=== PATIENT | female | born 1960 | race Caucasian/White ===

== ENCOUNTER 2018-03-27 11:46 | Inpatient (IN) | payer BC ==
[~2018-03-27 11:46] MED LIST: CEFAZOLIN 1 GM INJ; CEFAZOLIN 2 GM/50 ML (PMX) 50 ML IVPB
[2018-03-27 12:31] LABS: ADD MAN DIFF? NO
[2018-03-27 12:39] LABS: WHITE BLOOD COUNT 8.2 10^3/ul (4.8-10.8)
[2018-03-27 12:39] LABS: BASOPHIL # 0.1 10^3/ul (0.0-0.1); BASOPHILS % 0.8 % (0.0-2.0); EOSINOPHILS # 0.1 10^3/ul (0.0-0.5); EOSINOPHILS % 1.7 % (0.0-7.0); HEMATOCRIT 41.8 % (37.0-47.0); HEMOGLOBIN 13.5 g/dl (12.0-16.0); LYMPHOCYTES # 2.3 10^3/ul (0.8-2.9); LYMPHOCYTES % 27.7 % (15.0-51.0); MEAN CORPUSCULAR HEMOGLOBIN 31.4 pg (29.0-33.0); MEAN CORPUSCULAR HGB CONC 32.3 g/dl (32.0-37.0); MEAN CORPUSCULAR VOLUME 97.2 fl (82.0-101.0); MEAN PLATELET VOLUME 9.4 fl (7.4-10.4); MONOCYTE # 0.6 10^3/ul (0.3-0.9); MONOCYTES % 7.5 % (0.0-11.0); NEUTROPHIL # 5.1 10^3/ul (1.6-7.5); NEUTROPHILS % 62.2 % (39.0-77.0); PLATELET COUNT 315 10^3/UL (140-415); RED CELL DISTRIBUTION WIDTH 12.5 % (11.5-14.5)
[2018-03-27 12:53] LABS: ALANINE AMINOTRANSFERASE 37 IU/L (13-69); ALBUMIN 4.4 g/dl (3.3-4.9); ALBUMIN/GLOBULIN RATIO 1.25; ALKALINE PHOSPHATASE 71 IU/L (42-121); ANION GAP 11 (8-16); ASPARTATE AMINO TRANSFERASE 27 IU/L (15-46); BILIRUBIN,INDIRECT 0.3 mg/dl (0-1.1); BILIRUBIN,TOTAL 0.3 mg/dl (0.2-1.3); CARBON DIOXIDE 27 mmol/L (21-31); CHLORIDE 107 mmol/L (97-110); GLUCOSE 99 mg/dl (70-220); PHOSPHORUS 3.5 mg/dl (2.5-4.9); TOTAL PROTEIN 7.9 g/dl (6.1-8.1)
[2018-03-27 12:56] LABS: BLOOD UREA NITROGEN 18 mg/dl (7-20); CALCIUM 9.6 mg/dl (8.4-10.2); CREATININE 0.57 mg/dl (0.44-1.00); POTASSIUM 4.3 mmol/L (3.5-5.1); SODIUM 141 mmol/L (135-144)
[2018-03-27 13:12] LABS: INR 0.87; PROTIME 11.9 Sec (11.9-14.9); PT RATIO 0.9
[2018-03-27 13:13] LABS: PARTIAL THROMBOPLASTIN TIME 31.6 Sec (25.0-35.0)
[2018-03-27] MEDS ORDERED: DEXAMETHASONE 4 MG/ML 1 ML INJ (14:00)
[2018-03-27] MEDS ORDERED: LIDOCAINE 2% (SDV) 5 ML INJ ×2 (14:00→16:09)
[2018-03-27] MEDS ORDERED: MIDAZOLAM 1 MG/ML 2 ML INJ (14:00)
[2018-03-27] MEDS ORDERED: FENTAnyl 50 MCG/ML VIAL (14:00)
[2018-03-27] MEDS ORDERED: PROPOFOL 20 ML (14:00)
[2018-03-27] MEDS ORDERED: ONDANSETRON 4 MG INJ (14:00)
[2018-03-27] MEDS ORDERED: ROCURONIUM 50 MG INJ (14:00)
[2018-03-27] MEDS ORDERED: METOCLOPRAMIDE 10 MG INJ (14:24)
[2018-03-27] MEDS ORDERED: ACETAMINOPHEN 1000MG/100ML IV 100 ML (14:33)
[2018-03-27] MEDS ORDERED: SCOPOLAMINE 1.5 MG PATCH (14:35)
[2018-03-27] MEDS ORDERED: HYDROmorphONE 2 MG/ML SYG (14:36)
[2018-03-27] MEDS ORDERED: HYDROmorphONE 1 MG/5 ML IV SYRINGE IV ×2 (15:00)
[2018-03-27] MEDS ORDERED: MIDAZOLAM 1 MG/ML 2 ML INJ IV (15:00)
[2018-03-27] MEDS ORDERED: ONDANSETRON 4 MG INJ IV (15:00)
[2018-03-27] MEDS ORDERED: FENTAnyl 50 MCG/ML VIAL IV (15:00)
[2018-03-27] MEDS ORDERED: DIPHENHYDRAMINE 50 MG INJ IV (15:00)
[2018-03-27] MEDS: BUPIVACAINE 0.5%/EPI (SDV) 30 ML INJ (15:53)
[2018-03-27] MEDS ORDERED: NALOXONE (0.4 MG/ML) INJ IV (16:30)
[2018-03-27] MEDS: MEPERIDINE 25 MG INJ IV (16:53)
[2018-03-27] MEDS: FENTAnyl 50 MCG/ML VIAL IV (16:53)
[2018-03-27] MEDS: HYDROmorphONE 0.2 MG/ML PCA IV (17:06)
[2018-03-28] MEDS: HYDROmorphONE 0.2 MG/ML PCA IV (07:45)
[2018-03-28] MEDS: DOCUSATE SODIUM 100 MG CAP PO (17:04)
[2018-03-28 17:10] LABS: ADD UMIC YES; UR ASCORBIC ACID NEGATIVE (NEGATIVE); UR BILIRUBIN (Dip) NEGATIVE (NEGATIVE); UR BLOOD (Dip) 3+ mg/dL (NEGATIVE); UR CLARITY CLEAR (CLEAR); UR COLOR COLORLESS (YELLOW); UR GLUCOSE (Dip) NEGATIVE (NEGATIVE); UR KETONES (Dip) NEGATIVE (NEGATIVE); UR LEUKOCYTE ESTERASE (Dip) TRACE Leu/ul (NEGATIVE); UR NITRITE (Dip) NEGATIVE (NEGATIVE); UR RBC 6 /HPF (0-5); UR SPECIFIC GRAVITY (Dip) 1.002 (1.003-1.030); UR TOTAL PROTEIN (Dip) NEGATIVE (NEGATIVE); UR UROBILINOGEN (Dip) NEGATIVE (NEGATIVE); UR WBC 1 /HPF (0-5)
[2018-03-29] MEDS: HYDROmorphONE 0.2 MG/ML PCA IV (00:36)
[2018-03-29] MEDS: DOCUSATE SODIUM 100 MG CAP PO ×2 (08:37→20:30)
[2018-03-29] MEDS: HYDROmorphONE 2 MG TAB PO ×4 (08:37→20:54)
[2018-03-29] MEDS: HYDROCODONE/APAP (5/325) TAB PO ×5 (09:23→23:15)
[2018-03-30] MEDS: HYDROmorphONE 2 MG TAB PO ×3 (01:33→17:04)
[2018-03-30] MEDS: HYDROCODONE/APAP (5/325) TAB PO ×3 (04:10→13:48)
[2018-03-30] MEDS: DOCUSATE SODIUM 100 MG CAP PO (08:55)
[2018-03-30] MEDS: NA PHOSPHATE/BIPHOS 133 ML ENEMA PR (16:24)
== END 2018-03-30 17:25 | disposition home or self-care (01) | DRG 743 ==
LOC: REC 11:46 → MS2 18:00
PROC: 0UT90ZL Resection of Uterus, Supracervical, Open Approach (ICD-10-PCS; principal; 2018-03-27 13:30)
DX: D25.0 Submucous leiomyoma of uterus (principal); R10.2 Pelvic and perineal pain; D25.1 Intramural leiomyoma of uterus; R35.0 Frequency of micturition; R39.198 Other difficulties with micturition
CPT/HCPCS: 71045; 80053; 80069; 80076; 81001; 85025; 85610; 85730; 87086; 93005